=== PATIENT | female | born 1930 | race Caucasian/White ===

== ENCOUNTER 2016-03-28 13:21 | Emergency (ER) | payer OTHER ==
[2016-03-28 14:03] VITALS: BMI 17.6
[2016-03-28] MEDS ORDERED: SODIUM CHLORIDE 500 ML IV STA (15:01)
[2016-03-28 15:11] LABS: BASOPHIL 0.7 % (0-2.0); EOSINOPHIL 0.2 % (0-4.5); MCH 28.7 pg (25.7-33.7); MCHC 32.3 g/dl (32.0-36.0); MEAN CELL VOLUME 88.9 fl (80-96); MEAN PLT VOLUME 8.4 fl (7.5-11.1); NEUTROPHILS 77.4 % (42.8-82.8); PLATELET COUNT 534 K/MM3 (134-434); RDW 15.4 % (11.6-15.6); WHITE BLOOD COUNT 14.2 K/mm3 (4.0-10.0)
--- NOTE | 2016-03-28 15:26 | PDOC ---
History of Present Illness - General Chief Complaint: Injury Stated Complaint: FALL Time Seen by Provider: 03/28/16 14:47 History Source: Patient, Care Provider Exam Limitations: No Limitations - History of Present Illness Initial Comments: 03/28/16 15:22 85-year-old female presents from home after she was found on floor by home health aide. Patient was found alert, had no complaints, but EMS was activated because she had bruising on her right head. Patient does not recall the fall, denies any syncope. She has absolutely no complaints at this time, denies head pain or headache, no vision changes or speech changes, no nausea or vomiting or focal deficit. No recent infectious or dehydration complaints, no cardio pulmonary complaints. Past History - Past Medical History Allergies/Adverse Reactions: Allergies Allergy/AdvReac Type Severity Reaction Status Date / Time No Known Allergies Allergy Verified 03/28/16 16:04 Home Medications: Ambulatory Orders Aa/Hydrolyzed Collagen, Whey [Lps Neutral Flavor Liquid] 30 ml PO BID 03/28/16 Acetaminophen [Tylenol] 650 mg PO DAILY 03/28/16 Amoxicillin/Potassium Clav [Augmentin 875-125 Tablet] 1 each PO BID 03/28/16 Ascorbic Acid [Vitamin C -] 500 mg PO TID 03/28/16 Aspirin [ASA -] 81 mg PO DAILY 03/28/16 Atorvastatin Calcium [Lipitor] 10 mg PO HS 03/28/16 Chlorpheniramine/Dextromethorp [Robitussin Long-Acting Liq] 5 ml PO DAILY PRN Collagenase Clostridium Hist. [Santyl] 1 applic TP DAILY 03/28/16 Donepezil HCl [Aricept -] 10 mg PO HS 03/28/16 Ferrous Sulfate [Feosol] 325 mg PO TID 03/28/16 Lactobacillus Acidophilus [Bacid -] 1 each PO TID 03/28/16 Lisinopril [Prinivil] 10 mg PO DAILY 03/28/16 Multivitamin [Poly-Vitamin] 1 each PO DAILY 03/28/16 Omeprazole Magnesium [Prilosec] 20 mg PO DAILY 03/28/16 Oseltamivir Phosphate [Tamiflu] 75 mg PO DAILY 03/28/16 Polyethylene Glycol 3350 [Miralax 119 gm Btl -] 17 gm PO DAILY 03/28/16 Vancomycin Oral Solution 250 mg PO Q6H 03/28/16 Vit C/E/Zn/Coppr/Lutein/Zeaxan [Preservision Areds 2 Softgel] 1 each PO BID Dementia: Yes Other medical history: unknown - Psycho/Social/Smoking Cessation Hx Suicidal Ideation: No Smoking History: Unknown if ever smoked Have you smoked in the past 12 months: No Information on smoking cessation initiated: No Hx Alcohol Use: No Drug/Substance Use Hx: No Review of Systems - Review of Systems Able to Perform ROS?: Yes Constitutional: No: Chills, Fever HEENTM: No: Recent change in vision Respiratory: No: Cough, Shortness of Breath Cardiac (ROS): No: Chest Pain, Edema, Syncope ABD/GI: No: Diarrhea, Vomiting : No: Dysuria, Frequency Musculoskeletal: Yes: Back Pain (chronic 2/2 arthritis). No: Muscle Pain Neurological: No: Headache All Other Systems: Reviewed and Negative *Physical Exam - Vital Signs Last Vital Signs Temp Pulse Resp BP Pulse Ox 97.8 F 81 17 132/32 95 03/28/16 14:02 03/28/16 14:02 03/28/16 14:02 03/28/16 14:02 03/28/16 14:02 - Physical Exam Comments: 03/28/16 15:23 General: Patient is alert and in no acute distress. Speech is clear and appropriate. Smiling and conversant. Very thin. Head: 2cm R frontal scalp ecchymosis, otherwise atraumatic and nontender. HEENT: Pupils are equal round and reactive to light, extraocular movements are intact. The tympanic membranes are clear, no hemotympanum. No facial deformity/ tenderness, no septal hematoma. The oropharynx is clear. Neck: The trachea is midline, there is no stridor. There is no midline cervical spine tenderness, full range of motion of neck. Chest: Nontender, no ecchymosis or abrasions. Heart: S1-S2, regular rate and rhythm. No murmurs. Lungs: Clear to auscultation bilaterally. Symmetric chest rise. Abdomen: Soft/nontender/nondistended. Bowel sounds are normal. There is no abdominal or flank ecchymosis. Wears diaper at baseline. Back/Pelvis: There is no midline spine tenderness or step-off. Pelvis is stable and nontender. Extremities: There is no extremity deformity or joint swelling. No focal bony tenderness throughout. 2+ distal pulses throughout. Neuro: Alert and oriented x3. Cranial nerves II through XII are intact. 5 out of 5 motor strength x4 extremities. Eiyeea-tkxm-edlcqg is intact. No pronator drift. Gait deferred. Skin: Scalp contusion, otherwise no abrasions/hematomas/lacerations. Psych: Affect is appropriate. Heart Score/ECG Review #1 ECG reviewed & interpreted by me at: 14:12 03/28/16 15:25 sinus with APC at 81, no acute ischemic changes. Intervals normal. ED Treatment Course - LABORATORY CBC & Chemistry Diagram: 03/28/16 15:03 03/28/16 15:03 - RADIOLOGY Radiology Studies Ordered: Category Date Time Status HEAD CT WITHOUT CONTRAST [CT] Stat CT Scan 03/28/16 15:01 Ordered Medical Decision Making - Medical Decision Making 03/28/16 15:25 85-year-old female presents after she was found on floor by her home health aide. Trauma exam shows isolated contusion to scalp, otherwise is well- appearing and without objective findings on exam. Question nature of fall, mechanical versus lightheadedness/syncope. She is well-appearing and otherwise normal EKG. Check labs, urinalysis CT head, chest x-ray Reassess. If above is within normal limits and remains well appearing, possible discharge. 03/28/16 16:16 White count 14.2, hemoglobin 8, no priors available for comparison. Chemistries are within normal limits, troponin negative. CT head shows no acute injury. Awaiting urinalysis and chest x-ray. 03/28/16 16:31 Prior labs obtained from [facility], WBC on 03/26 was 13.2, hemoglobin 8.5. 03/28/16 16:49 On my preliminary review, chest x-ray has no acute pathology. Awaiting urinalysis. Patient is well-appearing, can likely be discharged back to [facility]. Should have abx if UA suggestive of UTI. Patient was signed out to the oncoming ED physician to follow-up the UA results , reassess the patient, and dispo accordingly as per the previous plan. 03/28/16 17:13 D/W Dr. Trimble, agrees pt can return to [place]. We will f/u UA then arrange transportation. *DC/Admit/Observation/Transfer Diagnosis at time of Disposition: Closed head injury Qualifiers: Encounter type: initial encounter Qualified Code(s): S09.90XA - Unspecified injury of head, initial encounter - Discharge Dispostion Disposition: HOME Condition at time of disposition: Stable - Referrals Referrals: Johnson Trimble MD [Primary Care Provider] - - Patient Instructions Printed Discharge Instructions: DI for Closed Head Injury Additional Instructions: Activity as tolerated. Stay hydrated. A CT of the head shows no acute injury. Blood tests are unchanged compared to . Tylenol 1000 mg every 8 hours as needed for pain. Ice the affected areas for 20 minutes every 3-4 hours to reduce swelling. [] Continue your medications as previously prescribed by your physician. You should follow up with Dr. Trimble as needed regarding today's emergency department visit. Return to the emergency department for any new or concerning symptoms, particularly frequent falls, severe pain or swelling, fever.
[2016-03-28 15:36] LABS: ALBUMIN 2.2 g/dl (3.4-5.0); ANION GAP 10 (8-16); BILIRUBIN,TOTAL 0.3 mg/dL (0.2-1.0); CALCIUM 8.5 mg/dL (8.5-10.1); CO2 27 mmol/L (21-32); CREATININE 0.7 mg/dL (0.55-1.02); GLUCOSE,RANDOM 191 mg/dL (74-106); SGOT/AST 24 U/L (15-37); SGPT/ALT 24 U/L (12-78); TOT PROT 6.1 g/dl (6.4-8.2)
[2016-03-28 15:38] LABS: ALK PHOS 112 U/L (45-117); TROPONIN I < 0.02 ng/ml (0.00-0.05)
[2016-03-28 17:49] LABS: URINE APPEARANCE CLEAR; URINE BILIRUBIN NEGATIVE (NEGATIVE); URINE BLOOD NEGATIVE (NEGATIVE); URINE COLOR LTYELLOW; URINE GLUCOSE (UA) NEGATIVE (NEGATIVE); URINE KETONE NEGATIVE (NEGATIVE); URINE LEUK ESTERASE NEGATIVE (NEGATIVE); URINE NITRITE NEGATIVE (NEGATIVE); URINE UROBILINOGEN NEGATIVE E.U./dl (0.2-1.0)
[2016-03-28 17:58] LABS: URINE PROTEIN 1+ (NEGATIVE)
[2016-03-28 18:08] LABS: URINE MUCUS RARE; URINE RBC <1 /hpf (0-3); URINE WBC 1 /hpf (3-5)
[2016-03-28 19:06] VITALS: BP 132/50; PULSE 68; TEMP 97.8
--- NOTE | 2016-03-29 16:57 | EKG ---
Test Reason : Blood Pressure : / mmHG Vent. Rate : 081 BPM Atrial Rate : 074 BPM P-R Int : 000 ms QRS Dur : 084 ms QT Int : 376 ms P-R-T Axes : 000 010 064 degrees QTc Int : 436 ms POOR DATA QUALITY, INTERPRETATION MAY BE ADVERSELY AFFECTED SINUS RHYTHM NO PREVIOUS ECGS AVAILABLE Confirmed by LISA COLBERT, KIANA ([id number]) on 03/29/2016 4:56:38 PM Referred By: Confirmed By:KIANA GONZALEZ MD
== END 2016-03-28 19:06 | disposition home or self-care (01) ==
LOC: JER 13:21
PROC: 3E0337Z Introduction of Electrolytic and Water Balance Substance into Peripheral Vein, Percutaneous Approach (ICD-10-PCS; principal; 2016-03-28)
DX: S09.90XA Unspecified injury of head, initial encounter (principal); W18.30XA Fall on same level, unspecified, initial encounter; Y93.9 Activity, unspecified; Y92.009 Unspecified place in unspecified non-institutional (private) residence as the place of occurrence of the external cause; F03.90 Unspecified dementia, unspecified severity, without behavioral disturbance, psychotic disturbance, mood disturbance, and anxiety; Z79.82 Long term (current) use of aspirin
CPT/HCPCS: 36415; 70450-TC; 71010-TC; 80053; 81003; 81015; 82550; 84484; 85025; 87086; 93005; 93010; 96360; 99285-25

== ENCOUNTER 2016-04-15 07:10 | Emergency (ER) | payer OTHER ==
[2016-04-15 07:45] VITALS: BMI 21.4
--- NOTE | 2016-04-15 07:54 | PDOC ---
History of Present Illness - General Chief Complaint: Injury Stated Complaint: FALL Time Seen by Provider: 04/15/16 07:29 History Source: Group Home Records Exam Limitations: Dementia - History of Present Illness Initial Comments: CHIEF COMPLAINT: 85 y/o afebrile female with PMH alzheimer's BIB EMS from [facility] after unwitnessed fall. HISTORY OF PRESENT ILLNESS: The patient was c/o back pain at long term. She has no complaints now. She is a poor historian. She doesn't know why she' s here and doesn't remember falling. Vital signs on arrival are notable for pulse of 59. REVIEW OF SYSTEMS: Non obtainable secondary to dementia. PHYSICAL EXAM: GENERAL: The patient is awake, alert, oriented to name, in no acute distress. HEAD: Normal with no signs of trauma. No hematomas. NECK: No midline cervical spine TTP or step offs. ENT: Pupils equal, round and reactive to light, extraocular movements intact, sclera anicteric, conjunctiva clear. LUNGS: Clear to auscultation bilaterally. Normal excursion. No respiratory distress or use of accessory muscles. CV: RRR, S1/S2, no MRG. Cap refill < 2 sec. ABDOMEN: Soft, non-distended, non-tender even to deep palpation, no hepatomegaly or splenomegaly, no masses. BACK: No midline lumbar spine TTP or step offs. EXTREMITIES: Normal range of motion, no edema. NEUROLOGICAL: Normal speech, normal gait. CN II-XII grossly intact. PSYCH: Normal mood, normal affect. SKIN: Warm, dry, normal turgor, no rashes or lesions noted. No abrasions noted. Past History - Past Medical History Allergies/Adverse Reactions: Allergies Allergy/AdvReac Type Severity Reaction Status Date / Time No Known Allergies Allergy Verified 04/15/16 07:16 Home Medications: Ambulatory Orders Amino Acids/Protein Hydrolys [Prostat 64 Liquid] 30 ml PO BID 04/15/16 Cyanocobalamin (Vitamin B-12) [Vitamin B-12] 1,000 mcg PO DAILY 04/15/16 Donepezil HCl [Aricept -] 10 mg PO DAILY 04/15/16 Ferrous Sulfate [Feosol] 325 mg PO DAILY 04/15/16 Lisinopril [Zestril] 2.5 mg PO DAILY 02/05/17 Multivitamins [Tab-A-Vit -] 1 tab PO DAILY 04/15/16 Anemia: Yes Dementia: Yes HTN: Yes - Psycho/Social/Smoking Cessation Hx Suicidal Ideation: No Smoking History: Unknown if ever smoked Have you smoked in the past 12 months: No Hx Alcohol Use: No Drug/Substance Use Hx: No *Physical Exam - Vital Signs Last Vital Signs Temp Pulse Resp BP Pulse Ox 96.5 F L 59 L 18 132/53 97 04/15/16 07:16 04/15/16 07:16 04/15/16 07:16 04/15/16 07:16 04/15/16 07:16 ED Treatment Course - RADIOLOGY Radiology Studies Ordered: Category Date Time Status HEAD CT WITHOUT CONTRAST [CT] Stat CT Scan 04/15/16 07:49 Ordered SPINE-LUMBAR SACRAL [RAD] Stat Radiology 04/15/16 07:49 Ordered Medical Decision Making - Medical Decision Making A/P: 85 y/o female [facility] after unwitnessed fall. She has no recollection of fall and is denying pain. Plan is as follows: 1. Head CT 2. Lumbar spine xray Lumbar spine xray IMPRESSION: Scoliosis with degenerative changes Head CT IMPRESSION: No acute bleed, mass, fracture or infarct. The patient will be sent back to the long term. *DC/Admit/Observation/Transfer Diagnosis at time of Disposition: Fall Qualifiers: Encounter type: initial encounter Qualified Code(s): W19.XXXA - Unspecified fall, initial encounter - Discharge Dispostion Disposition: [facility] Condition at time of disposition: Good - Referrals Referrals: Johnson Trimble MD [Primary Care Provider] - - Patient Instructions Printed Discharge Instructions: How to Prevent Falls Additional Instructions: Discharge instructions: -The CT scan of the head and the xray of the low back were negative for any acute findings.
[2016-04-15 12:34] VITALS: BP 115/71; PULSE 79; TEMP 98.1
== END 2016-04-15 12:25 ==
LOC: JER 07:10
DX: M54.5 Low back pain (principal); I10 Essential (primary) hypertension; G30.8 Other Alzheimer's disease; F02.80 Dementia in other diseases classified elsewhere, unspecified severity, without behavioral disturbance, psychotic disturbance, mood disturbance, and anxiety; D64.9 Anemia, unspecified; W18.39XA Other fall on same level, initial encounter; Y93.89 Activity, other specified; Y92.129 Unspecified place in nursing home as the place of occurrence of the external cause
CPT/HCPCS: 70450-TC; 72100-TC; 99282-25

== ENCOUNTER 2016-04-22 10:51 | Emergency (ER) | payer OTHER ==
[2016-04-22 11:36] VITALS: TEMP 97.3; BMI 19.5
--- NOTE | 2016-04-22 11:55 | PDOC ---
History of Present Illness - General History Source: Patient, [facility] Records Exam Limitations: Dementia - History of Present Illness Initial Comments: 04/22/16 11:56 The patient is an 85-year-old woman, from [facility], with a significant past medical history of hypertension, anemia and Alzheimer's disease who presents to the emergency department via EMS status post unwitnessed fall at the custodial. Unknown if the patient lost consciousness. Upon interview, the patient denies any pain. HPI is limited. Allergies: No Known Drug Allergies. Past Surgical History: None reported Social History: Unknown if ever smoked. No ETOH and recreational drug use. Primary Care Physician: Dr. Johnson Trimble <Myra Steen - Last Filed: 04/22/16 15:47> <Charli Fraire - Last Filed: 04/22/16 16:10> - General Chief Complaint: Injury Stated Complaint: FALL Time Seen by Provider: 04/22/16 11:25 Past History <Myra Steen - Last Filed: 04/22/16 15:47> - Past Medical History Anemia: Yes Dementia: Yes HTN: Yes - Immunization History Immunization Up to Date: No - Psycho/Social/Smoking Cessation Hx Suicidal Ideation: No Smoking History: Unknown if ever smoked Have you smoked in the past 12 months: No Hx Alcohol Use: No Drug/Substance Use Hx: No Substance Use Type: None <Charli Fraire - Last Filed: 04/22/16 16:10> - Past Medical History Allergies/Adverse Reactions: Allergies Allergy/AdvReac Type Severity Reaction Status Date / Time No Known Allergies Allergy Verified 04/22/16 11:38 Home Medications: Ambulatory Orders Unobtainable [Unobtainable] 04/22/16 Review of Systems - Review of Systems Able to Perform ROS?: No (Dementia) <Myra Steen - Last Filed: 04/22/16 15:47> *Physical Exam - Vital Signs Last Vital Signs Temp Pulse Resp BP Pulse Ox 97.3 F L 68 18 107/62 99 04/22/16 11:19 04/22/16 11:19 04/22/16 11:19 04/22/16 11:19 04/22/16 11:19 - Physical Exam Comments: 04/22/16 11:57 GENERAL: Awake, alert. HEAD: There is a small scalp contusion on the forehead. EYES: PERRLA, EOMI, sclera anicteric, conjunctiva clear ENT: Auricles normal inspection, hearing grossly normal, nares patent, oropharynx clear without exudates. Dry mucosa NECK: Normal ROM, supple, no lymphadenopathy, JVD, or masses LUNGS: Breath sounds equal, clear to auscultation bilaterally. No wheezes, and no crackles HEART: Regular rate and rhythm, normal S1 and S2, no murmurs, rubs or gallops ABDOMEN: Soft, nontender, normoactive bowel sounds. No guarding, no rebound. No masses EXTREMITIES: Contracted. No edema. No clubbing or cyanosis. No cords, erythema , or tenderness NEUROLOGICAL: Cranial nerves II through XII grossly intact. <Myra Steen - Last Filed: 04/22/16 15:47> - Vital Signs Last Vital Signs Temp Pulse Resp BP Pulse Ox 97.3 F L 68 18 107/62 99 04/22/16 11:19 04/22/16 11:19 04/22/16 11:19 04/22/16 11:19 04/22/16 11:19 <Charli Fraire - Last Filed: 04/22/16 16:10> ED Treatment Course - RADIOLOGY Radiograph Interpretation: 04/22/16 15:47 EXAM: CT/HEAD CT WITHOUT CONTRAST IMPRESSION: There is no CT evidence of intracranial injury or calvarial fracture. No definite interval change is identified in comparison to a previous CT study of 04/15/2015. There is no discrete infarct. Mild periventricular chronic microvascular ischemic changes are noted. There is no obvious mass lesion on noncontrast imaging. Mild to moderate involutional changes are seen with corresponding ventricular dilatation. <Myra Steen - Last Filed: 04/22/16 15:47> *DC/Admit/Observation/Transfer <Myra Steen - Last Filed: 04/22/16 15:47> - Discharge Dispostion Admit: No - Attestations Physician Attestion: 04/22/16 11:55 I, Dr. Charli Fraire, attest that this document has been prepared under my direction and personally reviewed by me in its entirety. I further attest, that it accurately reflects all work, treatment, procedures and medical decision -making performed by me. <Charli Fraire - Last Filed: 04/22/16 16:10> Diagnosis at time of Disposition: Closed head injury Qualifiers: Encounter type: initial encounter Qualified Code(s): S09.90XA - Unspecified injury of head, initial encounter - Discharge Dispostion Disposition: HOME Condition at time of disposition: Good - Referrals Referrals: Johnson Trimble MD [Primary Care Provider] - - Patient Instructions Printed Discharge Instructions: DI for Closed Head Injury Additional Instructions: It was a pleasure to meet you. Come back to us anytime you have a problem Best-Dr. Charli Fraire
[2016-04-22 18:10] VITALS: BP 117/65; PULSE 63
--- NOTE | 2016-04-23 12:07 | EKG ---
Test Reason : Blood Pressure : / mmHG Vent. Rate : 063 BPM Atrial Rate : 067 BPM P-R Int : 000 ms QRS Dur : 086 ms QT Int : 432 ms P-R-T Axes : 000 003 077 degrees QTc Int : 442 ms ATRIAL FIBRILLATION NONSPECIFIC ST ABNORMALITY ABNORMAL ECG WHEN COMPARED WITH ECG OF 28-MAR-2016 14:12, NO SIGNIFICANT CHANGE WAS FOUND Confirmed by KEIRY ARCOS MD ([id number]) on 04/23/2016 12:07:39 PM Referred By: Confirmed By:KEIRY ARCOS MD
== END 2016-04-22 18:11 | disposition home or self-care (01) ==
LOC: JER 10:51
DX: S00.83XA Contusion of other part of head, initial encounter (principal); W18.39XA Other fall on same level, initial encounter; Y93.89 Activity, other specified; Y92.122 Bedroom in nursing home as the place of occurrence of the external cause; I10 Essential (primary) hypertension; G30.8 Other Alzheimer's disease; F02.80 Dementia in other diseases classified elsewhere, unspecified severity, without behavioral disturbance, psychotic disturbance, mood disturbance, and anxiety; D64.9 Anemia, unspecified
CPT/HCPCS: 70450-TC; 93005; 93010; 99282-25